=== PATIENT | female | born 1955 | race Caucasian/White ===

== ENCOUNTER 2019-04-11 11:24 | Day surgery (SDC) | payer OTHER ==
[2019-04-11] VITALS (16 sets, daily range): BP systolic 87–138; BP diastolic 40–67; PULSE 66–80; RESP 10–65; Ht 149.9 cm; Wt 58.5 kg
[~2019-04-11] VITALS: Ht 149.9 cm; Wt 58.5 kg
[~2019-04-11 11:24] MED LIST: ALEN70TA5 PO; BACL20TA PO; BUPIVACAINE LIPOSOME/PF 266 MG/20 ML VIAL INFIL SCH; CALC1TAB79 PO; CITA40TA6 PO; ERGO500013 PO; FLUO20CA22 PO; FOLI-49 PO; GABA300C16 PO; HYDR-3026 PO; HYDR-843 PO; HYDR200T39 PO; LYRI100 PO; MET25 PO; OMEP20CA17 PO; SOD CHLORIDE 0.9% 1,000 ML IV SCH; ZOLP5TAB PO
[2019-04-11] MEDS ORDERED: GENTAMICIN 80 MG INJ ONE (12:58)
[2019-04-11] MEDS ORDERED: BUPIVACAINE 0.25%/EPI (SDV) 10 ML INJ ONE (12:58)
[2019-04-11] MEDS ORDERED: POLYMYXIN/BACITRACIN 1L IRRIG ONE (12:58)
[2019-04-11] MEDS ORDERED: HYDROCODONE/APAP (5/325) TAB PO PRN (15:00)
[2019-04-11] MEDS ORDERED: ONDANSETRON 4 MG INJ IV PRN ×2 (15:00→15:30)
[2019-04-11] MEDS ORDERED: ACETAMINOPHEN 325 MG TAB PO PRN (15:00)
[2019-04-11] MEDS ORDERED: morphine 2 MG INJ IV PRN (15:00)
[2019-04-11] MEDS ORDERED: MIDAZOLAM 1 MG/ML 2 ML INJ ONE (15:13)
[2019-04-11] MEDS ORDERED: FENTAnyl 50 MCG/ML VIAL ONE (15:13)
[2019-04-11] MEDS ORDERED: PROPOFOL 20 ML ONE (15:13)
[2019-04-11] MEDS ORDERED: LIDOCAINE 2% (SDV) 5 ML INJ ONE (15:13)
[2019-04-11] MEDS ORDERED: CEFAZOLIN 1 GM INJ ONE (15:24)
[2019-04-11] MEDS ORDERED: ONDANSETRON 4 MG INJ ONE (15:25)
[2019-04-11] MEDS ORDERED: DEXAMETHASONE 4 MG/ML 5 ML INJ ONE (15:25)
[2019-04-11] MEDS ORDERED: HYDROmorphONE 1 MG/5 ML IV SYRINGE IV PRN ×3 (15:30)
[2019-04-11] MEDS ORDERED: MEPERIDINE 25 MG INJ IV PRN (15:30)
[2019-04-11] MEDS ORDERED: PROCHLORPERAZINE 10 MG INJ IV PRN (15:30)
[2019-04-11] MEDS ORDERED: OXYCODONE/ACETAMINOPHEN (5/325) TAB PO PRN (15:30)
[2019-04-11] MEDS ORDERED: DIPHENHYDRAMINE 50 MG INJ IV PRN (15:30)
[2019-04-11] MEDS ORDERED: EPHEDrine 25 MG/5 ML SYG ONE (15:36)
[2019-04-11] MEDS: FENTAnyl 50 MCG/ML VIAL IV PRN ×3 (16:29→16:46)
== END 2019-04-11 18:09 | disposition home or self-care (01) ==
LOC: SDS 11:24
PROVIDERS: ATTEND Surgery Plastic and Reconstructive Surgery
DX: N64.4 Mastodynia (principal); F32.9 Major depressive disorder, single episode, unspecified; M32.9 Systemic lupus erythematosus, unspecified
CPT/HCPCS: 19330; 80048; 85025; 85610; 85730; C9290; J0690; J1100; J1580; J2250; J2405; J3010; Z7512; Z7610